=== PATIENT | female | born 1985 | race Caucasian/White ===

== ENCOUNTER 2016-08-30 16:13 | Emergency (ER) | payer MEDICAID ==
--- NOTE | 2016-08-30 16:53 | EDM.PDOC ---
ED HPI GENERAL MEDICAL PROBLEM - General Chief Complaint: General Stated Complaint: FAINTING SPELLS Time Seen by Provider: 08/30/16 16:20 Source of Information: Reports: Patient History Limitations: Reports: No Limitations - History of Present Illness INITIAL COMMENTS - FREE TEXT/NARRATIVE: Presents reporting chest tightness. The patient states that last night she was having dinner with friends which included a couple of drinks and smoking marijuana. She then had an episode when she became lightheaded with ringing in the ears and then passed out. She had some chest tightness at that time too which she attributed to GERD. She does have a history of acid reflux and did take some ranitidine last night. She also has a long history of anxiety and previously had been prescribed clonazepam and Xanax. She recently relocated to the area and does not have a primary provider or if any of her medications. She came in today because the chest tightness continues. She denies overt chest pain or shortness of breath. She does feel a little shaky and anxious with some "tight muscles". chest Pain Score (Numeric/FACES): 6 - Related Data Allergies Allergy/AdvReac Type Severity Reaction Status Date / Time No Known Allergies Allergy Verified 08/30/16 16:24 Home Meds: Home Meds . [No Known Home Meds] 08/30/16 [History] Past Medical History - Past Health History Medical/Surgical History: Denies Medical/Surgical History Gastrointestinal History: Reports: GERD Psychiatric History: Reports: Anxiety Social & Family History - Family History Family Medical History: Noncontributory - Tobacco Use Smoking Status *Q: Current Every Day Smoker Years of Tobacco use: 15 Packs/Tins Daily: 1 - Caffeine Use Caffeine Use: Reports: Coffee Caffeine Use Comment: 4 cups daily - Recreational Drug Use Recreational Drug Use: Yes Drug Use in Last 12 Months: Yes Recreational Drug Type: Reports: Marijuana/Hashish Recreational Drug Use Frequency: Socially ED ROS GENERAL - Review of Systems Review Of Systems: See Below Constitutional: Denies: Fever, Chills HEENT: Reports: No Symptoms Respiratory: Reports: No Symptoms Cardiovascular: Reports: Chest Pain (pressure) Endocrine: Reports: No Symptoms GI/Abdominal: Reports: No Symptoms : Reports: No Symptoms Musculoskeletal: Reports: Other (tightness) Skin: Reports: No Symptoms Neurological: Reports: No Symptoms Psychiatric: Reports: No Symptoms Hematologic/Lymphatic: Reports: No Symptoms Immunologic: Reports: No Symptoms ED EXAM, GENERAL - Physical Exam Exam: See Below Exam Limited By: No Limitations General Appearance: Alert, No Apparent Distress Ears: Normal External Exam Nose: Normal Inspection Throat/Mouth: Normal Inspection Head: Atraumatic, Normocephalic Neck: Normal Inspection Respiratory/Chest: No Respiratory Distress, Lungs Clear, Normal Breath Sounds Cardiovascular: Normal Peripheral Pulses, Regular Rate, Rhythm, No Murmur GI/Abdominal: Soft Back Exam: Normal Inspection Extremities: Normal Inspection Neurological: Alert, Oriented Psychiatric: Anxious Skin Exam: Warm, Dry, Intact, Normal Color, No Rash Lymphatic: No Adenopathy Course - Vital Signs Last Recorded V/S: Last Vital Signs Temp 36.5 C 08/30/16 16:26 Pulse 118 H 08/30/16 16:26 Resp 18 08/30/16 16:26 BP 169/79 H 08/30/16 16:26 Pulse Ox 100 08/30/16 16:26 - Orders/Labs/Meds Orders: Active Orders 24 hr Category Date Time Status EKG Documentation Completion [RC] STAT Care 08/30/16 16:38 Ordered Departure - Departure Time of Disposition: 17:03 Disposition: Home, Self-Care 01 Condition: good Clinical Impression: Anxiety - Discharge Information Referrals: PCP,None [Primary Care Provider] - [facility] [Outside] [facility] [Outside] Forms: ED Department Discharge Additional Instructions: 1. please take your medication for heartburn daily as directed 2. you may take lorazepam once or twice daily as needed for anxiety or panic-- no driving or operating machinery 3. make an appointment as soon as possible in primary care to further evaluate your anxiety and panic symptoms - My Orders Last 24 Hours: My Active Orders 08/30/16 16:38 EKG Documentation Completion [RC] STAT - Assessment/Plan Last 24 Hours: My Active Orders 08/30/16 16:38 EKG Documentation Completion [RC] STAT
[2016-08-30] MEDS ORDERED: LORazepam 1 MG Tab PO ONE (16:57)
== END 2016-08-30 17:26 | disposition home or self-care (01) ==
LOC: MW.ED 16:13
DX: F41.9 Anxiety disorder, unspecified (principal); F17.210 Nicotine dependence, cigarettes, uncomplicated
CPT/HCPCS: 93005; 99284; A9270; 99283